=== PATIENT | female | born 1970 | race Caucasian/White ===

== ENCOUNTER → 2023-08-29 07:19 | Outpatient (CLI) | payer OTHER, SELFPAY ==
[2023-04-24 11:08] VITALS: BMI 24.4
--- NOTE | 2023-08-29 07:21 | DI.MRI.S_ITS ---
PROCEDURE: MR LUMBAR SPINE WO CON INDICATIONS: Lumbar Radic s/p 3/4 fusion TECHNIQUE: Noncontrast sagittal T1 spin echo and T2 fast echo, sagittal STIR, and T2 fast spin echo through the lumbar spine. In cases with scoliosis, additional coronal T2 fast spin echo may be performed. COMPARISON: [facility], CT, CT ABDOMEN PELVIS WITHOUT CONTRAST, 05/08/2023, 18:32. [facility], MR, MR LUMBAR SPINE WITHOUT CONTRAST, 06/06/2021, 11:32. [facility], MR, L-SPINE WITHOUT CONTRAST, 10/20/2016, 18:53. FINDINGS: Image quality: Excellent. Alignment and Curvature: Straightening of the normal lumbar lordosis. Bone Marrow: Status post L3-L4 posterior spinal fixation and discectomy. Marrow is of normal overall signal. No acute vertebral body compression fractures. Spinal Cord: Conus medullaris terminates at the L1 level. Visualized cord demonstrates normal signal and size. Paraspinous Soft Tissues: No paravertebral masses. Bilateral renal simple appearing cyst. Intra and extrahepatic biliary ductal dilatation is seen. Common bile duct measures up to 14 millimeters Pancreatic ductal dilatation is also seen measuring up to 7 millimeters. T12-L1: No central canal or neural foraminal stenosis. L1-L2: Facet arthropathy. Mild central canal stenosis. No neural foraminal stenosis. L2-L3: Facet arthropathy and thickening of ligamentum flavum. Mild central canal stenosis. No neural foraminal stenosis. L3-L4: Postoperative changes. No central canal stenosis. Moderate left neural foraminal stenosis is stable. No right neural foraminal stenosis. L4-L5: Facet arthropathy and thickening of ligamentum flavum. Stable mild central canal stenosis. Disc desiccation and minimal disc bulge. Stable mild bilateral neural foraminal stenosis. L5-S1: No central canal or neural foraminal stenosis. IMPRESSION: 1. Multilevel degenerative changes of the lumbar spine status post L3-L4 posterior spinal fixation and discectomy. 2. Mild multilevel central canal stenosis as described above. 3. Moderate left neural foraminal stenosis at L3-L4 stable. Stable mild bilateral neural foraminal stenosis at L4-5. Dictated by: Darrian Waldrop M.D. on 08/29/2023 at 9:53 Approved by: Darrian Waldrop M.D. on 08/29/2023 at 10:00
== END ==
PROVIDERS: PCP Internal Medicine; Referring Provider Physical Medicine & Rehabilitation; Visit Provider Physical Medicine & Rehabilitation
DX: M47.816 Spondylosis without myelopathy or radiculopathy, lumbar region (principal); M48.061 Spinal stenosis, lumbar region without neurogenic claudication; M54.10 Radiculopathy, site unspecified; Z98.890 Other specified postprocedural states
CPT/HCPCS: 72148

== ENCOUNTER → 2023-10-10 10:07 | Outpatient (CLI) | payer OTHER, SELFPAY ==
[2023-04-24 11:08] VITALS: BMI 24.4
[2023-10-10 11:49] LABS: Appearance Urine UA SL CLOUDY; Bilirubin Urine UA NEGATIVE (NEGATIVE); Color Urine UA YELLOW; Glucose Urine UA NEGATIVE (Negative); Ketones Urine UA NEGATIVE (NEGATIVE); Leukocyte Esterase Urine UA 2+ (NEGATIVE); Nitrite Urine UA NEGATIVE (Negative); Occult Blood Urine UA 2+ (Negative); Protein Urine UA 2+ (Negative); Specific Gravity Urine UA 1.015 (1.000-1.035); Urobilinogen Urine UA 0.2 E.U./dL (0.2)
[2023-10-10 11:58] LABS: pH Urine UA 6.5 (4.5-8.0)
[2023-10-10 12:04] LABS: Urine Volume 10mL (spun)
[2023-10-10 12:05] LABS: RBC Urine 5-10/HPF (0-5/HPF)
[2023-10-10 12:06] LABS: Bacteria Urine Few (2-10); Culture Indicated Urine Specimen Cultured; Squamous Epithelial Cell Urine 1-5 /HPF (0-5/HPF); WBC Urine 10-30/HPF (0-5/HPF)
== END ==
LOC: LAB 10:10
PROVIDERS: PCP Internal Medicine; Referring Provider Internal Medicine; Visit Provider Internal Medicine
DX: N39.0 Urinary tract infection, site not specified (principal)
CPT/HCPCS: 81001; 87077; 87086; 87186

== ENCOUNTER 2023-11-29 09:02 | Outpatient (CLI) | payer MEDICARE, SELFPAY ==
[2023-04-24 11:08] VITALS: BMI 24.4
[2023-11-29] VITALS (9 sets, daily range): BP systolic 111–161; BP diastolic 73–97; PULSE 80–89; RESP 12–20; TEMP 36.6; O2SAT 96–100
--- NOTE | 2023-11-29 | DI.RAD.S_ITS ---
PROCEDURE: PAIN L/S TRANSFORAMINAL INJECT INDICATIONS: LEFT QUADRANT PAIN COMPARISON: [facility], CT, CT ABDOMEN PELVIS WITHOUT CONTRAST, 05/08/2023, 18:32. FINDINGS: 5 images. Fluoroscopic spot filming was performed to verify placement of spinal needles at the left L2-L3 level(s), as labeled on the films. Appropriate location(s) of the needle tip(s) was confirmed by injection of iodinated contrast. L3 pedicle screw. IMPRESSION: Intraoperative guidance provided. Dictated by: Sorin Lewis M.D. on 11/29/2023 at 12:05 Approved by: Sorin Lewis M.D. on 11/29/2023 at 12:06
[2023-11-29] MEDS: MIDAZOLAM 2 MG/2 ML VIAL IV (10:27)
[2023-11-29] MEDS: diphenhydrAMINE 50 MG/ML VIAL IV (10:30)
[2023-11-29] MEDS: fentaNYL 100 MCG/2 ML INJ 50 MCG IV (10:33)
[2023-11-29] MEDS: iopamidoL 15 ML VIAL 3 ML INJ (10:36)
[2023-11-29] MEDS: DEXAMETHASONE 10 MG/ML VIAL INJ (10:37)
[2023-11-29] MEDS: BETAMETHASONE 30 MG/5 ML MDV 6 MG INJ (10:37)
[2023-11-29] MEDS: BUPIVACAINE 0.25% (PF) VIAL 2 ML INJ (10:38)
--- NOTE | 2023-11-29 10:48 | P.PCN_ITS ---
Date/Time/Diagnoses Date of procedure: 11/29/23 Time of procedure: 10:49 Pre-procedure diagnosis: 1. FORAMINAL STENOSIS WITH LE SYMPTOMS Post-procedure diagnosis: same Procedure Notes Procedure: 1. FLUOROSCOPICALLY GUIDED CONTRAST CONTROLLED TRANSFORAMINAL EPIDURAL STEROID INJECTION - LEFT L2/3 TFESI Indications: Aleah is referred by Dr. Cleveland for treatment of Foraminal Stenosis with left LE Symptoms Physician: Justin Sánchez Total Fluoroscopy time (seconds): 12 Total sedation minutes: 16 Complications: none Procedure in detail & Post-procedure care: FINDINGS Foraminal Nerve Root Compression secondary to disc disease and facet hypertrophy DESCRIPTION OF PROCEDURE Following review of allergy and review of potential side effects and complications, including, but not necessarily limited to, infection, allergic reaction, local tissue breakdown, stroke, temporary or permanent nerve injury, paralysis, and possible , the patient indicated that the patient understood and agreed to proceed. An informed consent document was signed by the patient, witnessed by a nurse, and placed in the patient's chart. Additionally, other treatment options including medications, modalities, and physical therapy were reviewed with the patient. After review of previous anaesthesic history and IV conscious sedation the patient was deemed safe to proceed with today?s procedure with IV conscious sedation as ASA class II designation. Safety time-out was performed to confirm patient ID, procedure to be performed and site of procedure. IV sedation was accomplished with a combination of 2mg of Versed and 50mcg of Fentanyl was administered by the RN after DO order, titrated to patient comfort during the course of the procedure while the patient remained responsive to all verbal c ommands In the prone position following sterile prep and drape of the lumbar region, the left L2/3 posterior neuroforamen was identified fluoroscopically. The skin was anesthetized via a 25-gauge 1.5-inch needle with 1% lidocaine solution. At this point, a 25-gauge 3.5-inch spinal needle was atraumatically introduced and advanced under fluoroscopic guidance through the posterior left L2/3 neuro foramen to approximately the anterior aspect of the canal. Depth was confirmed on lateral view. Following negative aspiration, injection of approximately 1.5 cc of Isovue 200 under live fluoroscopy in the AP view confirmed excellent flow along the nerve root, into the epidural space without vascular or intrathecal uptake observed Radiological data, including multiple fluoroscopic views of the lumbosacral spine, reveal a spinal needle at the left L2/3 posterior neuroforamen. Subsequent views show flow of contrast material flowing superiorly and inferiorly along the nerve root confirming epidural flow. Subsequently, a test dose of 1.5cc of 1% lidocaine solution was administered and patient was observed for two minutes for signs or symptoms of complications, including abdominal pain, shortness of breath, bilateral upper or lower extremity weakness, nausea and vomiting, prior to steroid injection. At this point, a total of 2cc or 10mg of dexamethasone and 6mg betamethasone was in jected without incident. The patient tolerated the procedure well without signs or symptoms of complications prior to transfer to the recovery area continued monitoring without incident. The patient was then transferred to the recovery area where they were observed for an appropriate time after the injection. The patient reported a VAS score of 7 prior to the procedure and a post-procedure VAS of 0. POST OP INSTRUCTIONS The patient was provided a Pain Log to continue to record their response to the target-specific procedure prior to follow-up visit with their referring physician. Additionally, specific post-injection care instructions and a contact number to our office were provided if concerns arise regarding possible complications associated with the procedure are suspected.
--- NOTE | 2023-11-29 11:27 | PC.NURSE ---
Patient denies any SOB, chest pain, or Headache and also denies itching.
== END 2023-11-29 11:05 | disposition home or self-care (01) ==
LOC: RAD 09:03
PROVIDERS: PCP Internal Medicine; Referring Provider Physical Medicine & Rehabilitation; Visit Provider Physical Medicine & Rehabilitation
DX: M48.061 Spinal stenosis, lumbar region without neurogenic claudication (principal); M51.16 Intervertebral disc disorders with radiculopathy, lumbar region; M47.26 Other spondylosis with radiculopathy, lumbar region
CPT/HCPCS: 64483; 99152; J0702; J1100; J1200; J2250; J3010; J3490